=== PATIENT | male | born 1985 | race American Indian/Alaskan Native ===

== ENCOUNTER 2019-04-01 21:38 | Emergency (ER) | payer SELFPAY ==
--- NOTE | 2019-04-01 21:59 | Emergency Department Report ---
Blank Doc - Documentation Documentation: This is a 34-year-old male that presents with chest pain and SOB. Stated also has a cough. This initial assessment/diagnostic orders/clinical plan/treatment(s) is/are subject to change based on patient's health status, clinical progression and re- assessment by fellow clinical providers in the ED. Further treatment and workup at subsequent clinical providers discretion. Patient/guardians urged not to elope from the ED as their condition may be serious if not clinically assessed and managed. Initial orders include: 1- Patient sent to [facility] for further evaluation and treatment 2- labs 3- EKG 4- CXR <NUSRAT WAITE - Last Filed: 04/01/19 21:55> - Documentation Documentation: A physician and/or other qualified medical personnel has recommended that the patient receive further examination and/or treatment beyond their Medical Screening Exam. The risks and benefits were explained. The patient was informed of their right to emergency care. Patient left before final disposition of their medical condition. This note has been generated by me, Dr. Ivelisse Whitaker III, MD, the [facility] for the emergency department. I have not seen this patient personally. <IVELISSE WHITAKER - Last Filed: 04/02/19 11:48>
[2019-04-01] MEDS ORDERED: IBUPROFEN PO ONE ×2 (22:01→22:03)
[2019-04-01 22:04] VITALS: BP 141/83
[2019-04-01 22:26] LABS: Basophils % (Auto) 0.1 % (0.0-1.8); Eosinophils % (Auto) 0.1 % (0.0-4.3); Hematocrit 47.5 % (35.5-45.6); Hemoglobin 16.2 gm/dl (11.8-15.2); Lymphocytes # (Auto) 1.4 K/mm3 (1.2-5.4); Lymphocytes % (Auto) 8.3 % (13.4-35.0); Mean Corpuscular HGB Conc 34 % (32-34); Mean Corpuscular Volume 90 fl (84-94); Monocytes % (Auto) 6.2 % (0.0-7.3); Platelet Count 180 K/mm3 (140-440); Red Blood Count 5.26 M/mm3 (3.65-5.03); Red Cell Distribution Width 13.4 % (13.2-15.2)
[2019-04-01 22:38] LABS: Partial Thromboplastin Time 27.2 Sec. (24.2-36.6)
[2019-04-01 22:44] LABS: BUN/Creatinine Ratio 15; Blood Urea Nitrogen 15 mg/dL (9-20); Calcium 9.6 mg/dL (8.4-10.2); Hemolysis Index 35
--- NOTE | 2019-04-02 00:37 | XRay Report ---
PROCEDURE: XR CHEST ROUTINE 2V TECHNIQUE: PA and lateral chest radiographs were obtained. HISTORY: Chest Pain COMPARISONS: None. FINDINGS: Heart: Normal. Mediastinum/Vessels: Normal. Lungs/Pleural space: Normal. Bony thorax: No acute osseous abnormality. IMPRESSION: Normal examination. This document is electronically signed by Jairo Amanda MD., April 02 2019 12:35:45 AM ET
== END 2019-04-02 01:00 | disposition left against medical advice (07) ==
LOC: EDSEX → ED 21:38
DX: R07.89 Other chest pain (principal); R51 Headache; M54.9 Dorsalgia, unspecified; Z53.21 Procedure and treatment not carried out due to patient leaving prior to being seen by health care provider
CPT/HCPCS: 36415; 71046; 80048; 84484; 85025; 85610; 85730; 93005; 93010